=== PATIENT | female | born 1985 | race Caucasian/White ===

== ENCOUNTER 2023-12-06 16:28 | Emergency (ER) | payer OTHER, SELFPAY ==
[2023-12-06 16:31] VITALS: BP 146/87
--- NOTE | 2023-12-06 17:02 | ED.GENMED ---
History of Present Illness
General
Chief Complaint: Flank Pain
Time Seen by Provider: 12/06/23 16:34
History of Present Illness
History of Present Illness:
37-year-old female with history of chronic pain, kidney stones presenting to the emergency department left flank pain. Patient states that yesterday she had diffuse back pain and thought it was her chronic back pain. This morning it worsened and
spread to her left flank and sometimes radiates down to her groin. She had associated nausea and 1 episode of vomiting. No fevers or chills. She is having decreased urination though no dysuria or hematuria. Last menstrual period finished
yesterday. This does feel similar to prior kidney stones. 1 stone did require urology intervention. No lightheadedness dizziness. No syncopal events. No abdominal pain. No vaginal discharge
Past History
Past History
ED Past Medical History: Other (chronic neck pain, chronic back pain both after a fall at work 2011, on disability and under pain management at [place], migraine headaches)
ED Past Surgical History: Orthopedic
Social History
Tobacco: Non-smoker
Alcohol: None
Drug: None
Personal: Single
Living: with family
Employment: Disabled
Family History
Family History: Negative Diabetes, Hypertension or CAD
Phy Exam
Physical Exam
Physical Exam:
GENERAL: in no acute distress
HEENT: normocephalic, extraocular movements intact, moist oral mucosa
NECK: normal inspection
RESPIRATORY: no respiratory distress, clear to auscultation bilaterally
CARDIOVASCULAR: regular rate and rhythm,
ABDOMEN/: soft, non-distended, non-tender to palpation, no rebound or guardin. positive left CVA tendernessg
EXTREMITIES: non-tender, no edema/swelling
NEUROLOGIC: awake and alert, moves all extremities
SKIN: warm
Course
Orders/Labs/Results
Orders:
Orders
12/06/23 16:59
CT Abd/pel Without Iv Or Oral Urgent
Comment:
Reason For Exam: left flank pain, hx kidney stone
Ketorolac [Toradol] 15 mg IV NOW STA
Ondansetron Injectable [Zofran] 4 mg IV NOW STA
12/06/23 17:13
Basic Metabolic Panel Urgent
Complete Blood Count/With Diff Urgent
HCG, Urine Qualitative Screen Urgent
Date Specimen was Collected: 12/06/23
Time Specimen was Collected: 16:39
Urinalysis Reflex To Culture Urgent
Date Specimen was Collected: 12/06/23
Time Specimen was Collected: 16:39
Urine Microscopic Reflex Cult Urgent
12/06/23 18:17
Oxycodone [Roxicodone] 5 mg PO NOW STA
Abnormal Lab Results
12/06/23
17:13
WBC 11.1 H 10^3/uL
(4.8-10.8)
Absolute Neuts (auto) 9.2 H 10^3/uL
(1.4-6.5)
Absolute Lymphs (auto) 1.1 L 10^3/uL
(1.2-3.4)
Absolute Monos (auto) 0.7 H 10^3/uL
(0.1-0.6)
Neutrophils % 82.7 H %
(42.2-75.2)
Lymphocytes % 9.6 L %
(20.5-51.1)
Chloride 108 H mmol/L
(98-107)
Carbon Dioxide 17 L mmol/L
(22-30)
BUN 28 H mg/dl
(7-17)
Glucose 117 H mg/dl
(70-99)
Ur Occult Blood Reflex 4+ A
(Negative)
Urine RBC 11-15 A /HPF
(0-2)
12/06/23 17:13
12/06/23 17:13
Vital Signs
Initial and Last Documented VS:
Initial Vital Signs
Temp Pulse Resp BP Pulse Ox
98.4 F 81 16 146/87 98
12/06/23 16:31 12/06/23 16:31 12/06/23 16:31 12/06/23 16:31 12/06/23 16:31
Last Documented Vital Signs
Temp Pulse Resp BP Pulse Ox
98.4 F 81 16 146/87 98
12/06/23 16:31 12/06/23 16:31 12/06/23 16:31 12/06/23 16:31 12/06/23 16:31
MDM/Problems Addressed
Differential Diagnosis Includes:
Patient is a 37-year-old woman with history of kidney stone presenting to the emergency department for left flank pain for the past day. Vitals here are unremarkable and exam does show left-sided CVA tenderness. Differential consists of kidney
stone versus pyelonephritis versus UTI. Could be . Unlikely to be PID. Will check blood work including urine test. Will obtain CT kidney stone protocol. Will give Zofran and Toradol.
*Critical Care Note
Total Time (30-74mins, 75-104mins- exclusive of procedures): Not Applicable
Update Note
Update Note:
Urine does not appear infected. CT scan per my interpretation with left kidney stone. Per the official read there is some hydroureteronephrosis. I discussed with urology who agrees with outpatient follow-up given that patient is not toxic
peering. Pain is well-controlled. Will discharge with Flomax and oxycodone.
ED Attending Note
-
Portions of this chart may have been created with voice recognition software.� Occasional wrong word or��sound alike� substitutions may have occurred due to the inherent limitations of voice recognition software.
Discharge Plan
Departure
Patient Disposition: Home (Routine Discharge)
Date of Disposition: 12/06/23
Time of Disposition: 20:40
Patient with high blood pressure during this ER visit?: No
Discharge Problem:
Kidney stone
Instructions: Kidney Stones (DC)
Prescriptions:
New
tamsulosin [Flomax] 0.4 mg capsule
0.4 mg PO DAILY Qty: 30 0RF
oxycodone 5 mg capsule
5 mg PO Q6H PRN (Reason: Pain) Qty: 14 0RF
No Action
cyclobenzaprine 10 MG tablet
10 mg PO DAILY
hydrocodone-acetaminophen 1 TABLET tablet
1 tab PO Q4HPRN PRN (Reason: pain)
zolpidem 10 MG tablet
10 mg PO HSPRN PRN (Reason: insomnia)
topiramate [Topamax] 50 MG tablet
75 mg PO BID
hydrocodone-acetaminophen [Bishop] 1 EACH tablet
1 ea PO Q4HPRN PRN (Reason: pain) Qty: 10 0RF
Referrals:
Otoniel Burch MD [Active] -
Lio Estrada MD [Family Provider] -
Activity Restrictions/Additional Instructions:
You were seen in the Emergency Department today for flank pain. While you were here we performed blood work, which was reassuring. You are found to have a 6 mm kidney stone. Please follow-up with urology. Please take Flomax daily. Please take
oxycodone every 6 hours as needed. Please come back to the emergency department for fevers chills nausea vomiting or intractable pain.
If you experience fever, worsening of your symptoms, or develop any other new or concerning symptoms, please return to the Emergency Department immediately.
Please see the attached sheet for additional information.
Interventions
Interventions:
*Risk Screen - Suicide Last Done: 12/06/23 19:11
*General Assessment Last Done: 12/06/23 19:11
*Neglect/Abuse Screening Last Done: 12/06/23 19:11
KN-Ertpsc-Eoeojlxxjt Assessment Last Done: 12/06/23 19:11
ED-Female Genitourinary Assessment Last Done: 12/06/23 19:11
Discharge Date and Time
Print Language: FINNISH
[2023-12-06] MEDS: TORADOL 15 MG IV (17:11)
[2023-12-06] MEDS: ZOFRAN 4 MG IV (17:11)
[2023-12-06 17:24] LABS: % Basophils 0.2 % (0-2); % Eosinophils 1.2 % (0-6); % Immature Granulocytes 0.3 % (0-0.5); % Lymphocytes 9.6 % (20.5-51.1); % Neutrophils 82.7 % (42.2-75.2); Absolute Eosinophils 0.1 10^3/uL (0-0.7); Absolute Lymphocytes 1.1 10^3/uL (1.2-3.4); Absolute Monocytes 0.7 10^3/uL (0.1-0.6); Absolute Neutrophils 9.2 10^3/uL (1.4-6.5); Hematocrit 40.4 % (37.0-47.0); Hemoglobin 13.6 g/dL (12.0-16.0); Mean Corp Hgb Conc. 33.7 g/dL (33.0-37.0); Mean Corpuscular Hgb 30.9 pg (27.0-31.0); Mean Corpuscular Volume 91.8 fL (81.0-99.0); Mean Platelet Volume 8.6 fL (7.4-10.4); Nucleated Red Blood Cells % 0 %; Platelet Count 314 10^3/uL (130-400); White Blood Cell Count 11.1 10^3/uL (4.8-10.8)
[2023-12-06 17:26] LABS: Urine Albumin Negative (Neg - Trace); Urine Bilirubin Negative (Negative); Urine Character Clear (Clear); Urine Color Yellow; Urine Glucose Negative (Negative); Urine Ketone Negative (Negative); Urine Leukocyte Negative (Negative); Urine Nitrite Negative (Negative); Urine Occult Blood 4+ (Negative); Urine Specific Gravity 1.025 (<1.030); Urine Urobilinogen Negative (Neg - 1+)
[2023-12-06 17:36] LABS: Blood Urea Nitrogen 28 mg/dl (7-17); Calcium 9.5 mg/dl (8.4-10.2); Carbon Dioxide 17 mmol/L (22-30); Chloride 108 mmol/L (98-107); Glucose 117 mg/dl (70-99); Potassium 4.3 mmol/L (3.5-5.1); Sodium 142 mmol/L (135-145); eGFR > 60.00
[2023-12-06 17:58] LABS: HCG, Urine Qualitative Screen Negative
[2023-12-06 18:28] LABS: Urine Squamous Cell >30 /LPF (Few); Urine White Cell 0-2 /HPF (0-5)
[2023-12-06] MEDS: ROXICODONE 5 MG PO (18:40)
[2023-12-06 21:06] VITALS: BP 119/72
== END 2023-12-06 21:08 | disposition home or self-care (01) ==
LOC: EMR 16:28
PROVIDERS: EMERGENCY PHYSICIAN Student in an Organized Health Care Education/Training Program; FAMILY PHYSICIAN Internal Medicine
DX: N13.2 Hydronephrosis with renal and ureteral calculous obstruction (principal); M54.9 Dorsalgia, unspecified; G43.909 Migraine, unspecified, not intractable, without status migrainosus; G89.29 Other chronic pain; Z87.442 Personal history of urinary calculi; Z88.8 Allergy status to other drugs, medicaments and biological substances; Z91.018 Allergy to other foods; Z91.048 Other nonmedicinal substance allergy status
CPT/HCPCS: 99284; 96374; 96375; 74176; 80048; 81003; 81015; 81025; 85025

== ENCOUNTER 2023-12-10 20:38 | Inpatient (IN) | payer OTHER, SELFPAY ==
[2023-12-10] VITALS (8 sets, daily range): BP systolic 104–149; BP diastolic 71–96; BMI 35.1; BMI 34.6
[2023-12-10 16:12] LABS: % Basophils 0.5 % (0-2); % Eosinophils 2.9 % (0-6); % Immature Granulocytes 0.2 % (0-0.5); % Lymphocytes 17.9 % (20.5-51.1); % Monocytes 6.6 % (1.7-9.3); % Neutrophils 71.9 % (42.2-75.2); Absolute Eosinophils 0.2 10^3/uL (0-0.7); Absolute Monocytes 0.4 10^3/uL (0.1-0.6); Hematocrit 36.4 % (37.0-47.0); Hemoglobin 12.4 g/dL (12.0-16.0); Mean Corp Hgb Conc. 34.1 g/dL (33.0-37.0); Mean Corpuscular Hgb 31.2 pg (27.0-31.0); Mean Corpuscular Volume 91.7 fL (81.0-99.0); Mean Platelet Volume 8.8 fL (7.4-10.4); Nucleated Red Blood Cells % 0 %; Platelet Count 259 10^3/uL (130-400); Red Blood Cell Count 3.97 10^6/uL (4.20-5.40); Red Cell Dist. Width 12.7 % (11.5-14.5); White Blood Cell Count 5.6 10^3/uL (4.8-10.8)
[2023-12-10 16:55] LABS: ALT (SGPT) 14 U/L (0-35); AST (SGOT) 20 U/L (14-36); Albumin 4.4 g/dl (3.5-5.0); Alkaline Phosphatase 82 U/L (38-126); Blood Urea Nitrogen 26 mg/dl (7-17); Calcium 9.7 mg/dl (8.4-10.2); Carbon Dioxide 19 mmol/L (22-30); Chloride 107 mmol/L (98-107); Glucose 114 mg/dl (70-99); HCG, Serum Qualitative Screen Negative; Potassium 4.9 mmol/L (3.5-5.1); Sodium 139 mmol/L (135-145); Total Bilirubin 0.7 mg/dl (0.2-1.3); eGFR 53.98
--- NOTE | 2023-12-10 17:02 | ED.GENMED ---
History of Present Illness
General
Chief Complaint: Flank Pain
Source: patient and records
Time Seen by Provider: 12/10/23 16:44
History of Present Illness
History of Present Illness:
38yoF with a history of chronic back pain on Walsh presenting for evaluation of flank pain. Patient was seen in the ED on 12/06/2023 for left flank pain and she was diagnosed with a 6 mm proximal ureteral stone. Patient has not passed the stone
since her visit. She reports continued severe flank pain that is unrelieved with Toradol and Walsh. She has not vomited since her last ED visit. She is urinating normally and denies any fevers. Patient was unable to get a follow-up appointment
with urology until 2 weeks from now.
Past History
Past History
ED Past Medical History: Other (chronic neck pain, chronic back pain both after a fall at work 2011, on disability and under pain management at [place], migraine headaches)
ED Past Surgical History: Orthopedic
Social History
Tobacco: Non-smoker
Alcohol: None
Drug: None
Personal: Single
Living: with family
Employment: Disabled
Family History
Family History: Negative Diabetes, Hypertension or CAD
Phy Exam
General Physical Exam
General Presentation: well appearing and no apparent distress
General age: appears stated age
General Skin: warm and dry
General Habitus: normal
General Mental: alert
Cardiovascular Exam
Cardiovascular Exam: regular rate/rhythm
Pulmonary Exam
Pulmonary Exam: lungs clear, no respiratory distress, no crackles and no wheezing
Gastrointestinal Exam
Gastrointestinal Exam: soft, non distended and no cva tenderness
Palpation: left upper quadrant: Mild tenderness
[place] Coma Scale
Eye Opening: Spontaneous
Verbal Response: Oriented
Motor Response: Obeys Commands
GCS Total Score: 15
Skin Exam
Skin Exam: normal color and warm/dry
Psychiatric Exam
Psychiatric Exam: normal mood/affect
Course
Orders/Labs/Results
Orders:
Orders
12/10/23 15:48
Test Result ONCE
12/10/23 15:59
Complete Blood Count/With Diff Urgent
Comprehensive Metabolic Panel Urgent
HCG, Serum Qualitative Screen Urgent
12/10/23 17:02
0.9% Sodium Chloride 1000 ml [Nss] 1,000 ml IV BOLUS
HYDROmorphone [Dilaudid] 1 mg IV NOW STA
Ketorolac [Toradol] 15 mg IV NOW STA
12/10/23 17:39
Urinalysis Reflex To Culture Urgent
Date Specimen was Collected: 12/10/23
Time Specimen was Collected: 17:35
Urine Microscopic Reflex Cult Urgent
12/10/23 19:18
HYDROmorphone [Dilaudid] 1 mg IV NOW STA
12/10/23 20:08
Admit/Transfer Patient As Directed
Co-Sign Provider:
Level of Care: Inpatient admission
Assign to:: Medical/Surgical
Physician / Group: nader tellez
Diagnosis: left ureteral stone with mod left hydroureteronephrosis
Reason for Hospitalization: left ureteral stone with mod left hydroureteronephrosis
Expected length of stay greater than two midnights?: Yes
ELOS- Estimated Length of Stay in days: 3
I certify the patient meets the requirements for IP care: Yes
Code Status As Directed
Resuscitation Status: Full Code
12/10/23 20:11
PRN Pain Medication Management As Directed
May give lesser potent ordered pain med per pt: Yes
preference::
Protocol:: Medication orders for pain may be administered in a
manner that supports deferring to patient preference
when the pt is:
- Requesting an ordered lesser potent pain medication.
Least to most potent pain medications are defined
as: acetaminophen < NSAID < tramadol < opioids
(morphine, oxycodone, hydromorphone).
- Requesting a lesser dose of the same medication IF
ORDERED.
- Requesting a less intrusive route of administration
if both routes are prescribed by the provider (PO <
IV).
Abnormal Lab Results
12/10/23 12/10/23
15:59 17:39
RBC 3.97 L 10^6/uL
(4.20-5.40)
Hct 36.4 L %
(37.0-47.0)
MCH 31.2 H pg
(27.0-31.0)
Absolute Lymphs (auto) 1.0 L 10^3/uL
(1.2-3.4)
Lymphocytes % 17.9 L %
(20.5-51.1)
Carbon Dioxide 19 L mmol/L
(22-30)
BUN 26 H mg/dl
(7-17)
Creatinine 1.3 H mg/dL
(0.6-1.0)
Glucose 114 H mg/dl
(70-99)
Ur Occult Blood Reflex 3+ A
(Negative)
Urine RBC 3-6 A /HPF
(0-2)
Urine Bacteria (Reflex) Few A
(Negative)
12/10/23 15:59
12/10/23 15:59
Vital Signs
Initial and Last Documented VS:
Initial Vital Signs
Temp Pulse Resp BP Pulse Ox
97.8 F 104 18 149/93 99
12/10/23 15:44 12/10/23 15:44 12/10/23 15:44 12/10/23 15:44 12/10/23 15:44
Last Documented Vital Signs
Temp Pulse Resp BP Pulse Ox
97.8 F 104 18 136/85 100
12/10/23 15:44 12/10/23 15:44 12/10/23 15:44 12/10/23 17:03 12/10/23 17:15
MDM/Problems Addressed
Differential Diagnosis Includes:
38yoF here with continued L flank pain. Seen in the ED on 12/05 and diagnosed with a 6mm ureteral stone. Pain unrelieved with Walsh which she takes chronically. She is afebrile and hemodynamically stable. She is well-appearing in no acute distress.
There is mild tenderness in the left upper quadrant on exam. No CVA tenderness. Differential diagnosis includes but is not limited to: Ureteral stone, HAILE, UTI
Initial ED plan: Check CBC, CMP, UA. IV Dilaudid, Toradol, and fluid bolus for symptoms.
*Critical Care Note
Total Time (30-74mins, 75-104mins- exclusive of procedures): Not Applicable
Update Note
Update Note:
Creatinine 1.3, mildly increased from 1.0 at her last ED visit. UA with microscopic hematuria. No overt signs of infection. Patient requiring multiple doses of Dilaudid for pain control. Patient does not feel comfortable with discharge and is
requesting admission for pain control. Urology notified of patient and she was admitted for further management.
ED Attending Note
-
Portions of this chart may have been created with voice recognition software.� Occasional wrong word or��sound alike� substitutions may have occurred due to the inherent limitations of voice recognition software.
Discharge Plan
Departure
Patient Disposition: Admit
Date of Disposition: 12/10/23
Time of Disposition: 19:40
Presentation/result/management discussed w/ accepting MD/DO: Hospitalist
Discharge Problem:
Left ureteral stone, Intractable pain
Prescriptions:
No Action
topiramate [Topamax] 50 MG tablet
100 mg PO QPM
tamsulosin [Flomax] 0.4 mg capsule
0.4 mg PO DAILY Qty: 30 0RF
tizanidine 2 mg Tablet
2 mg PO TIDPRN PRN (Reason: muscle spasms)
hydrocodone-acetaminophen [Walsh] 7.5-325 mg Tablet
1 tab PO Q4HPRN PRN (Reason: moderate pain)
Patient Comments:
12/10/23: last filled 12/02/23 for 150 tablets over 30 days
ibuprofen 200 mg Tablet
200 mg PO Q6HPRN PRN (Reason: mild pain)
docusate sodium [Stool Softener] 100 mg Capsule
100 mg PO HSPRN PRN (Reason: constipation)
eszopiclone [Lunesta] 1 mg Tablet
1 mg PO HS
melatonin 5 mg Tablet
5 mg PO HSPRN PRN (Reason: sleep)
ketorolac 10 mg tablet
20 mg PO Q8HPRN PRN (Reason: severe pain)
Referrals:
Lio Estrada MD [Family Provider] -
Interventions
Interventions:
*Risk Screen - Suicide Last Done: 12/10/23 15:43
*General Assessment Last Done: 12/10/23 15:44
*Neglect/Abuse Screening Last Done: 12/10/23 15:44
ED- Fall Risk Assessment Last Done: 12/10/23 16:57
*ED COVID-19 Vaccine History Last Done: 12/10/23 16:57
VM-Nxgexj-Ntjzqdklzi Assessment Last Done: 12/10/23 16:57
ED-Female Genitourinary Assessment Last Done: 12/10/23 17:00
Discharge Date and Time
Print Language: POLISH
[2023-12-10] MEDS: NSS 1000 IV ×2 (17:09→22:04)
[2023-12-10] MEDS: DILAUDID 1 MG IV ×2 (17:09→19:21)
[2023-12-10] MEDS: TORADOL 15 MG IV (17:09)
[2023-12-10 17:49] LABS: Urine Albumin Negative (Neg - Trace); Urine Bilirubin Negative (Negative); Urine Character Clear (Clear); Urine Color Straw; Urine Glucose Negative (Negative); Urine Ketone Negative (Negative); Urine Leukocyte Negative (Negative); Urine Nitrite Negative (Negative); Urine Occult Blood 3+ (Negative); Urine Urobilinogen Negative (Neg - 1+); Urine pH 6.5 (5.0-9.0)
[2023-12-10 18:16] LABS: Urine Bacteria Few (Negative); Urine White Cell 0-2 /HPF (0-5)
--- NOTE | 2023-12-10 20:01 | HPS.HSE ---
Family Physician
-
Family Physician: Lio Estrada
Chief Complaint
-
Lt flank pain with radiation to groin
History of Present Illness
37F HX chronic pain, kidney stonesseen at ER for evalaution left flank pain
- Worsening diffuse back pain radiating to Lt flan and radiation to Lt groin
- [place] like similar to prior kidney stones. 1 stone did require urology intervention.
- associated nausea and 1 episode of vomiting.
- No fevers or chills
- reports decreased urination though no dysuria or hematuria.
- No abdominal pain. No vaginal discharge
LMP completed yesterday.
Medical History
Past Medical History
Past Medical History: Reports Other (chronic neck pain, chronic back pain both after a fall at work 2011, on disability and under pain management at [place], migraine headaches))
Past Surgical History: Reports Orthopedic
Social History
Tobacco: Non-smoker
Alcohol: None
Drug: None
Personal: Single
Living: With Family
Family History
Family History: Not pertinent
Allergies / Home Medications
Allergies reflects when Allergies were last updated in [facility].
Home Medications with original date entered in [facility]
Allergy/Medication List:
Allergies
Allergy/AdvReac Type Severity Reaction Status Date / Time
coffee (Coffea arabica) Allergy throat Verified 03/06/23 11:52
[coffee] closes
quetiapine [From Seroquel] Allergy Unknown Verified 03/06/23 12:33
environmental allergies Allergy Hives Uncoded 03/06/23 11:52
Home Medications
topiramate 50 mg tablet (Topamax) 100 mg PO QPM 06/04/14
tamsulosin 0.4 mg capsule (Flomax) 0.4 mg PO DAILY #30 caps 12/06/23
docusate sodium 100 mg capsule (Stool Softener) 100 mg PO HSPRN PRN constipation 12/10/23
eszopiclone 1 mg tablet (Lunesta) 1 mg PO HS 12/10/23
hydrocodone 7.5 mg-acetaminophen 325 mg tablet 1 tab PO Q4HPRN PRN moderate pain 12/10/23
ibuprofen 200 mg tablet 200 mg PO Q6HPRN PRN mild pain 12/10/23
ketorolac 10 mg tablet 20 mg PO Q8HPRN PRN severe pain 12/10/23
melatonin 5 mg tablet 5 mg PO HSPRN PRN sleep 12/10/23
tizanidine 2 mg tablet 2 mg PO TIDPRN PRN muscle spasms 12/10/23
Review of Systems
-
Constitutional: Reports No Symptoms
EENT: Reports No Symptoms
Respiratory: Reports No Symptoms
Cardiac: Reports No Symptoms
Abdomen/GI: Reports No Symptoms
: Reports See HPI
Musculoskeletal: Reports No Symptoms
Skin: Reports No Symptoms
Neurological: Reports No Symptoms
Endocrine: Reports No Symptoms
Hematologic/Lymphatic: Reports No Symptoms
Psych: Reports No Symptoms
Physical Exam
Vital Signs
Vital Signs
Temp Pulse Resp BP Pulse Ox
97.8 F 104 18 136/85 100
12/10/23 15:44 12/10/23 15:44 12/10/23 15:44 12/10/23 17:03 12/10/23 17:15
Physical Exam
General: Well Nourished, No Apparent Distress and Conversant
HEENT: NormoCephalic and Anicteric
Respiratory: Clear
Cardiac: S1/S2 and Regular Rhythm
Breast: Deferred by me
GI: Soft, Non Tender and Non Distended
Genito-urinary: Costovertebral angle tend (at Lt )
Musculoskeletal: No Edema
Skin: Warm and Dry
Neuro: AO x 3
Psych: Calm
Laboratory Results
-
12/10/23 15:59
12/10/23 15:59
Laboratory Results
Total Bilirubin 0.7 mg/dl (0.2-1.3) 12/10/23 15:59
AST 20 U/L (14-36) 12/10/23 15:59
ALT 14 U/L (0-35) 12/10/23 15:59
Alkaline Phosphatase 82 U/L (38-126) 12/10/23 15:59
Data Reviewed
-
CT Scan: Report Reviewed by me
Lab Data: Labs Reviewed by me
Old Records: Reviewed
Impression/Plan
-
Vital Signs
Temp Pulse Resp BP Pulse Ox
97.8 F 104 18 136/85 100
12/10/23 15:44 12/10/23 15:44 12/10/23 15:44 12/10/23 17:03 12/10/23 17:15
Laboratory Tests
12/06/23 12/10/23
17:13 15:59
WBC 5.6
Carbon Dioxide 19 L
BUN 26 H
Creatinine 1.0 1.3 H
eGFR > 60.00 53.98
HCG, Qual Negative
UA 12/10/23
17:39
Leukocyte Esterase Rfl Negative
Urine RBC 3-6 A
Urine WBC (Reflex) 0-2
Ur Squamous Epith Cells 6-10
Urine Bacteria (Reflex) Few A
12/06/23 DT AP w IV oral contrast
- 6 mm proximal left ureteral calculus with associated upstream moderate left hydroureteronephrosis.
ASSESSMENT & PLAN
Suspect migrating 6mm Lt ureteral stone with uretal stone colic
moderate left hydroureteronephrosis.
UA looks not infected
- Hold off ABx
- PRN narcotic analgesia
- PRN anti emetics
- IV NS 100/H
- Clear diet
- Uro consulted ; suggest likely OR on Wednesday
HAILE suspect obstructive uropathy
- IV NS
- Trend Cr
Chronic neck pain
Chronic back pain both after a fall at work 2011, on disability and under pain management at [place]
Migraine headaches on Topamax
DVT Px: SCD
Code: Full code
IP MS
--- NOTE | 2023-12-10 21:30 | TRANSFER ---
Pt admitted from ED to room 435-2. Pt was able to walk from stretcher to bed with no assistance. AAOx3. VSS. Pt oriented to room. Call fall placed within reach.
[2023-12-10] MEDS: ZOFRAN 4 MG IV (22:04)
[2023-12-10] MEDS: MELATONIN 5 MG PO (22:04)
[2023-12-10] MEDS: DILAUDID 0.5 MG IV (23:50)
[2023-12-11] MEDS: DILAUDID 0.5 MG IV ×3 (04:32→22:10)
[2023-12-11 06:57] LABS: % Basophils 0.3 % (0-2); % Immature Granulocytes 0.3 % (0-0.5); % Lymphocytes 23.8 % (20.5-51.1); % Monocytes 9.4 % (1.7-9.3); % Neutrophils 63.2 % (42.2-75.2); Absolute Eosinophils 0.2 10^3/uL (0-0.7); Absolute Lymphocytes 1.6 10^3/uL (1.2-3.4); Absolute Monocytes 0.7 10^3/uL (0.1-0.6); Absolute Neutrophils 4.4 10^3/uL (1.4-6.5); Hematocrit 32.3 % (37.0-47.0); Hemoglobin 10.8 g/dL (12.0-16.0); Mean Corp Hgb Conc. 33.4 g/dL (33.0-37.0); Mean Corpuscular Hgb 31.3 pg (27.0-31.0); Mean Corpuscular Volume 93.6 fL (81.0-99.0); Mean Platelet Volume 9.2 fL (7.4-10.4); Nucleated Red Blood Cells % 0 %; Platelet Count 241 10^3/uL (130-400); Red Blood Cell Count 3.45 10^6/uL (4.20-5.40); Red Cell Dist. Width 12.8 % (11.5-14.5); White Blood Cell Count 6.9 10^3/uL (4.8-10.8)
[2023-12-11 07:20] VITALS: BP 127/84
[2023-12-11 07:25] LABS: ALT (SGPT) 12 U/L (0-35); AST (SGOT) 18 U/L (14-36); Albumin 3.6 g/dl (3.5-5.0); Alkaline Phosphatase 63 U/L (38-126); Blood Urea Nitrogen 22 mg/dl (7-17); Calcium 8.5 mg/dl (8.4-10.2); Carbon Dioxide 16 mmol/L (22-30); Chloride 110 mmol/L (98-107); Estimated Creatinine Clearance 76 ml/min; Glucose 92 mg/dl (70-99); Potassium 4.4 mmol/L (3.5-5.1); Sodium 139 mmol/L (135-145); Total Bilirubin 0.6 mg/dl (0.2-1.3); eGFR > 60.00
[2023-12-11] MEDS: FLOMAX 0.4 MG PO (07:45)
[2023-12-11] MEDS: DILAUDID 1 MG IV ×2 (09:05→13:19)
[2023-12-11] MEDS: NSS 1000 IV ×2 (09:06→17:14)
--- NOTE | 2023-12-11 09:34 | W.PN.HOSP.TC ---
Today's Communication/Plan
-
see outlined plan
Assessment / Plan
Assessment / Plan
Assessment:
6 mm proximal left ureteral calculus with associated upstream moderate left hydroureteronephrosis.
- sent home from ER 12/05 with trial of passage outpatient, failed
- now returns with flank pain, also obstructive HAILE
- continue aggressive IVF, Cr improving
- send off urine culture add on, then start IV Rocephin
- NPO p MN for OR stone procedure tomorrow; Urology consulted
- continue pain control, anti-emetics
Chronic neck pain
Chronic back pain both after a fall at work 2011, on disability and under pain management at [place]
- continue pain control, muscle relaxers
Migraine - headaches on Topamax
DVT ppx: SCDs
Code: Full
Anticipated Discharge: > 48 hours
Subjective/Interval History
-
Date of Service: December 11, 2023
no complaints at present, pain controlled
Objective Data
-
Labs:
Laboratory Results
12/11/23
05:19
WBC 6.9
Hgb 10.8 L
Hct 32.3 L
Plt Count 241
Sodium 139
Potassium 4.4
Chloride 110 H
Carbon Dioxide 16 L
BUN 22 H
Creatinine 1.1 H
Glucose 92
Calcium 8.5
Total Bilirubin 0.6
AST 18
ALT 12
Alkaline Phosphatase 63
Vital Signs:
Vital Signs
Temp Pulse Resp BP Pulse Ox
97.5 F 81 16 127/84 99
12/11/23 07:20 12/11/23 07:20 12/11/23 07:20 12/11/23 07:20 12/11/23 07:20
I&O
12/10/23 12/11/23 12/12/23
06:59 06:59 06:59
Intake Total 480 / 480
Balance 480 / 480
Physical Exam
-
General: No Apparent Distress
HEENT: Normocephalic and Atraumatic
Respiratory: Negative Wheezes
Cardiac: Regular Rhythm and S1/S2
GI: Soft
Genito-urinary: No Costovertebral Tender
Musculoskeletal: No Edema
Neuro: AO x 3
Hematologic / Lymphatic: No Lymphadenopathy
Psych: Calm
Data Reviewed
-
Total Time Spent with Patient (in minutes): 42
Labs: Labs Reviewed by me
[2023-12-11] MEDS: STERILE WATER FOR INJECTION 10 ML IV (10:09)
[2023-12-11] MEDS: ROCEPHIN 1000 MG IV (10:09)
--- NOTE | 2023-12-11 11:44 | W.PN.URO.CBU ---
Today's Communication / Plan
-
npo for op rom if pt agrees am sun
Assessment / Plan
-
npo poss op room am sun but pt given option of discharge trial of passage
Diagnosis
-
Date of Service: December 11, 2023
-
Patient Diagnosis:
left 6mm prox uretera stne intrayctable pain
Post Op Day:
Subjective
-
severe pain
Objective
-
Vital Signs
Temp Pulse Resp BP Pulse Ox
97.5 F 81 16 127/84 99
12/11/23 07:20 12/11/23 07:20 12/11/23 07:20 12/11/23 07:20 12/11/23 07:20
Intake and Output
12/10/23 12/11/23 12/12/23
06:59 06:59 06:59
Intake Total 480 / 480
Balance 480 / 480
Intake:
Oral fluids 480 / 480
Other:
Number of approximated MODERATE 4
amounts of urine
Laboratory Results
12/11/23 05:19
12/11/23 05:19
Review of Systems
-
Abdomen/GI: Nausea
: Flank Pain
Physical Exam
-
General - well developed, well nourished, no acute distress non toxic
Chest - clear bilaterally
Abdomen - soft, non-tender, positive bowel sounds, no CVAT, no incisional pain or distention
Genitalia - normal
Rectal - normal
Skin - warm & dry with no rash
Neuro - AOx3, no motor deficits
Extremities - no clubbing, no cyanosis, no edema
Incision - clean, dry
Dressing - clean, dry, intact
Care Review
Data Reviewed
Discussed with: Hospitalist and Nursing
CT Scan: Image Pers Reviewed
[2023-12-11] MEDS: TYLENOL 650 MG PO (14:13)
[2023-12-11] MEDS: ZANAFLEX 2 MG PO (14:44)
[2023-12-11 15:25] VITALS: BP 126/80
[2023-12-11] MEDS: TOPAMAX 100 MG PO (17:14)
[2023-12-11] MEDS: ZOFRAN 4 MG IV (20:24)
[2023-12-11] MEDS: MELATONIN 5 MG PO (22:16)
[2023-12-11 23:00] VITALS: BP 131/83
[2023-12-12] VITALS (8 sets, daily range): BP systolic 123–143; BP diastolic 68–89
[2023-12-12] MEDS: ZOFRAN 4 MG IV (02:40)
[2023-12-12] MEDS: DILAUDID 1 MG IV (02:56)
[2023-12-12] MEDS: NSS 1000 IV (07:01)
[2023-12-12 07:04] LABS: % Basophils 0.3 % (0-2); % Eosinophils 0.5 % (0-6); % Immature Granulocytes 0.4 % (0-0.5); % Lymphocytes 9.9 % (20.5-51.1); % Monocytes 6.2 % (1.7-9.3); % Neutrophils 82.7 % (42.2-75.2); Absolute Lymphocytes 0.8 10^3/uL (1.2-3.4); Absolute Monocytes 0.5 10^3/uL (0.1-0.6); Absolute Neutrophils 6.3 10^3/uL (1.4-6.5); Hematocrit 29.5 % (37.0-47.0); Mean Corp Hgb Conc. 33.9 g/dL (33.0-37.0); Mean Corpuscular Hgb 30.6 pg (27.0-31.0); Mean Corpuscular Volume 90.2 fL (81.0-99.0); Mean Platelet Volume 9.2 fL (7.4-10.4); Nucleated Red Blood Cells % 0 %; Platelet Count 246 10^3/uL (130-400); Red Blood Cell Count 3.27 10^6/uL (4.20-5.40); Red Cell Dist. Width 12.7 % (11.5-14.5); White Blood Cell Count 7.6 10^3/uL (4.8-10.8)
[2023-12-12 07:27] LABS: ALT (SGPT) < 10 U/L (0-35); AST (SGOT) 13 U/L (14-36); Albumin 3.2 g/dl (3.5-5.0); Alkaline Phosphatase 57 U/L (38-126); Blood Urea Nitrogen 15 mg/dl (7-17); Calcium 7.7 mg/dl (8.4-10.2); Carbon Dioxide 16 mmol/L (22-30); Chloride 115 mmol/L (98-107); Estimated Creatinine Clearance 93 ml/min; Glucose 103 mg/dl (70-99); Potassium 3.9 mmol/L (3.5-5.1); Sodium 141 mmol/L (135-145); Total Bilirubin 0.4 mg/dl (0.2-1.3); Total Protein 5.5 g/dl (6.3-8.2); eGFR > 60.00
--- NOTE | 2023-12-12 07:49 | PTCARENOTE ---
Addendum entered by Taniya De La Paz RN 12/12/23 09:33:
pt returned from OR at 0920. Ambulated to bathroom once in room without difficulty. vitals per post op protocol.
Original Note:
pt taken to OR
--- NOTE | 2023-12-12 08:40 | W.SUR.POST ---
Surgical Immediate Post Op
Note
Pre Op Diagnosis:
left uretral stone intyractable pain nn/v
Post Op Diagnosis:
same
Procedure Performed:
left uretroscopy laser stone basket extraction and jj stent left
Primary Surgeon:
flashner
Secondary Surgeons:
Anesthesia: lesvia general
Estimated Blood Loss:
2cc
Fluids:
nss
Drains/Shunts: 6 fr 24 cmm jj stent
Specimens/Cultures:
Doppler/Duplex/Angio (Y/N):
0
Operative Findings: uum lodged in left uretr h=no obvious purumece
[2023-12-12] MEDS: Pyridium 200 MG PO (09:07)
[2023-12-12] MEDS: STERILE WATER FOR INJECTION 10 ML IV (09:23)
[2023-12-12] MEDS: ROCEPHIN 1000 MG IV (09:23)
[2023-12-12] MEDS: FLOMAX 0.4 MG PO (09:23)
--- NOTE | 2023-12-12 11:01 | CM ---
dining services manager reviewed patient's chart and met with patient and patient's mother at bedside. Patient lives with her mother in a multilevel home, patient was independent with adl's and ambulation, no dme, patient does not drive.
Pharmacy: [facility]
PCP: Dr. Estrada
Plan; Home when stable, no needs.
--- NOTE | 2023-12-12 13:46 | W.PN.HOSP.TC ---
Today's Communication/Plan
-
dc to home today
Assessment / Plan
Assessment / Plan
Assessment:
6 mm proximal left ureteral calculus with associated upstream moderate left hydroureteronephrosis.
- sent home from ER 12/05 with trial of passage outpatient, failed
- returned with flank pain, also obstructive HAILE
- s/p left uretroscopy laser stone basket extraction and jj stent left 12/11
- DC on Cefdinir x 8 days (10 total doses)
- OP Urology f/u
Chronic neck pain
Chronic back pain both after a fall at work 2011, on disability and under pain management at [facility]
- continue pain control, muscle relaxers
Migraine - headaches on Topamax
DVT ppx: SCDs
Code: Full
More than 30 minutes spent in discharge including
Final examination of the patient
Summarizing hospital stay
Instructions for continuing care to all relevant caregivers
Preparation of discharge records, prescriptions, and referral forms
Total time spent (in minutes): 41
Anticipated Discharge: Today
Subjective/Interval History
-
Date of Service: December 12, 2023
seen post-op no complaints
Objective Data
-
Labs:
Laboratory Results
12/12/23
05:00
WBC 7.6
Hgb 10.0 L
Hct 29.5 L
Plt Count 246
Sodium 141
Potassium 3.9
Chloride 115 H
Carbon Dioxide 16 L
BUN 15
Creatinine 0.9
Glucose 103 H
Calcium 7.7 L
Total Bilirubin 0.4
AST 13 L
ALT < 10
Alkaline Phosphatase 57
Vital Signs:
Vital Signs
Temp Pulse Resp BP Pulse Ox
97.7 F 97 16 125/73 99
12/12/23 12:30 12/12/23 12:30 12/12/23 12:30 12/12/23 12:30 12/12/23 12:30
I&O
12/11/23 12/12/23 12/13/23
06:59 06:59 06:59
Intake Total 480 / 480 3680 / 3680 100 / 100
Balance 480 / 480 3680 / 3680 100 / 100
Physical Exam
-
General: No Apparent Distress
HEENT: Normocephalic
Respiratory: Negative Wheezes
Cardiac: Regular Rhythm and S1/S2
GI: Soft and Nontender
Genito-urinary: No Costovertebral Tender
Musculoskeletal: No Edema
Neuro: AO x 3
Psych: Calm
Data Reviewed
-
Total Time Spent with Patient (in minutes): 41
Labs: Labs Reviewed by me
--- NOTE | 2023-12-12 13:56 | W.DS.TRANS ---
DC Summary - [facility]
-
Discharge Instructions:
Discharge Diagnosis/Procedures L ureteral stone s/p left uretroscopy laser,
stone basket extraction and jj stent placement
Diet Regular
Activity As tolerated
Instructions:
Stand-Alone Forms:
Changes to Home Medications: No
Discharge Medications:
DC Medications w/original date entered in [employer]
topiramate 50 mg tablet (Topamax) 100 mg PO QPM Seizures 06/04/14
docusate sodium 100 mg capsule (Stool Softener) 100 mg PO HSPRN PRN constipation 12/10/23
eszopiclone 1 mg tablet (Lunesta) 1 mg PO HS Sleep 12/10/23
hydrocodone 7.5 mg-acetaminophen 325 mg tablet 1 tab PO Q4HPRN PRN moderate pain 12/10/23
ibuprofen 200 mg tablet 200 mg PO Q6HPRN PRN mild pain 12/10/23
ketorolac 10 mg tablet 20 mg PO Q8HPRN PRN severe pain 12/10/23
melatonin 5 mg tablet 5 mg PO HSPRN PRN sleep 12/10/23
tizanidine 2 mg tablet 2 mg PO TIDPRN PRN muscle spasms 12/10/23
cefdinir 300 mg capsule 300 mg PO BID #16 caps 12/12/23
phenazopyridine 200 mg tablet 200 mg PO Q8HPRN PRN Urinary Pain #20 tabs 12/12/23
Home Medication Changes
Pending Results: No
Total time spent discharging patient (in min): 42
== END 2023-12-12 14:23 | disposition home or self-care (01) | DRG 661 ==
LOC: 4 WEST ACU 20:38
PROVIDERS: Clinical Nurse Specialist Family Health; Physician Assistant; ADMITTING PHYSICIAN Internal Medicine; ATTENDING PHYSICIAN Internal Medicine; EMERGENCY PHYSICIAN Emergency Medicine; FAMILY PHYSICIAN Internal Medicine; OTHER PHYSICIAN Specialist
PROC: 0T778DZ Dilation of Left Ureter with Intraluminal Device, Via Natural or Artificial Opening Endoscopic (ICD-10-PCS; 2023-12-12)
PROC: 0TC78ZZ Extirpation of Matter from Left Ureter, Via Natural or Artificial Opening Endoscopic (ICD-10-PCS; 2023-12-12)
DX: N13.2 Hydronephrosis with renal and ureteral calculous obstruction (principal); N17.9 Acute kidney failure, unspecified; G89.29 Other chronic pain; R11.2 Nausea with vomiting, unspecified; R60.9 Edema, unspecified; G43.909 Migraine, unspecified, not intractable, without status migrainosus; M54.2 Cervicalgia; W19.XXXS Unspecified fall, sequela; Y99.0 Civilian activity done for income or pay; Z87.442 Personal history of urinary calculi; Z82.49 Family history of ischemic heart disease and other diseases of the circulatory system; Z79.891 Long term (current) use of opiate analgesic
CPT/HCPCS: 74018; 76000; 80053; 81003; 81015; 82365; 84703; 85025; 87086; 96361; 96374; 96375; 96376; 99284; C1894; C2617

== ENCOUNTER → 2024-01-05 16:18 | Outpatient (REF) | payer OTHER, SELFPAY | LOC: RAD 16:18 | PROVIDERS: ATTENDING PHYSICIAN Specialist; FAMILY PHYSICIAN Internal Medicine | DX: N39.0 Urinary tract infection, site not specified (principal) | CPT/HCPCS: 74018 ==